=== PATIENT | male | born 1945 | race Caucasian/White ===

== ENCOUNTER 2017-09-07 09:58 | Emergency (ER) | payer MEDICARE ==
[~2017-09-07] VITALS: Ht 185.4 cm; Wt 95.0 kg
[2017-09-07 10:03] VITALS: BP 182/95; PULSE 54; RESP 16; TEMP 98.6; O2SAT 99
[2017-09-07] MEDS ORDERED: LOSA50TA PO (10:14)
[2017-09-07] MEDS ORDERED: METO50TA PO (10:14)
[2017-09-07] MEDS ORDERED: CLON0.1T PO (10:14)
[2017-09-07] MEDS ORDERED: COQ-30CA2 (10:14)
[2017-09-07] MEDS ORDERED: VITA250T3 PO (10:14)
[2017-09-07] MEDS ORDERED: MULT-116 PO (10:14)
[2017-09-07] MEDS ORDERED: ATOR40TA16 PO (10:14)
[2017-09-07] MEDS ORDERED: MULT-65 PO (10:14)
[2017-09-07] MEDS ORDERED: LECI12002 (10:14)
[2017-09-07] MEDS ORDERED: ASPI81CH6 CHEW (10:14)
[2017-09-07] MEDS ORDERED: AMLO5TAB2 PO (10:14)
[2017-09-07] MEDS ORDERED: FOLI400T PO (10:14)
--- NOTE | 2017-09-07 10:25 | PD ---
HPI Chief Complaint: Dizziness Time Seen by Provider: 10:10 Travel History International Travel<30 days: No Contact w/Intl Traveler<30days: No Traveled to known affect area: No History of Present Illness HPI This 72-year-old male says he felt dizzy this morning. When he got up he felt like he might lose his balance. He is quite lightheaded. He did not have real vertigo. He did not have a headache. He feels a bit better now. He went in the shower and it seemed to get worse. He did have some palpitations prior to the onset of the symptoms he is on metoprolol and he says that his heart rate usually is between 50 and 60. He says that he monitors his blood pressure at home and he also gets a pulse rate at the same time. He did not have any chest pain. He has known history of coronary artery disease. He does have an enlarged heart PFSH Past Medical History Cardiovascular Problems: Yes (cardiomegly) High Cholesterol: Yes Diminished Hearing: No Hypertension: Yes Influenza Vaccination: No ?: Not Past Surgical History Eye Surgery: Yes (carolyn cataracts) Joint Replacement: Yes (right hip) Social History Alcohol Use: Yes Tobacco Use: No Allergies-Medications (Allergen,Severity, Reaction): Coded Allergies: No Known Allergies (Verified Allergy, Unknown, 09/07/17) Reported Meds & Prescriptions Reported Meds & Active Scripts Active Reported Sukhjinder Mag Zinc + D3 (Multiple Vitamins W/ Minerals) 1 Tab 1 Tab PO HS Amlodipine (Amlodipine Besylate) 5 Mg Tab 5 Mg PO HS Atorvastatin (Atorvastatin Calcium) 40 Mg Tab 40 Mg PO HS Lecithin (Lecithin, Soy) 1,200 Mg Capsule 0 Vitamin C (Ascorbic Acid) 250 Mg Tab 0 PO DAILY Multi-Vitamin Daily (Multiple Vitamin) 1 Tab Tab 1 Tab PO DAILY Folic Acid 0.4 Mg Tab 0 PO DAILY Coq-10 (Coenzyme Q10 (Ubidecarenone)) 30 Mg Cap 0 Aspirin Low Dose (Aspirin) 81 Mg Chew 81 Mg CHEW DAILY Metoprolol Tartrate 50 Mg Tab 50 Mg PO DAILY Losartan (Losartan Potassium) 50 Mg Tab 50 Mg PO DAILY Clonidine (Clonidine HCl) 0.1 Mg Tab 0.1 Mg PO DAILY Review of Systems General / Constitutional: No: Fever, Chills Eyes: No: Diploplia, Blurred Vision HENT: No: Headaches Cardiovascular: Positive: Palpitations, No: Chest Pain or Discomfort Respiratory: No: Cough, Shortness of Breath Gastrointestinal: No: Vomiting Genitourinary: No: Urgency, Frequency Musculoskeletal: No: Myalgias, Arthralgias Skin: No Rash Neurologic: No: Weakness Endocrine: No: Heat Intolerance Hematologic/Lymphatic: No: Easy Bruising Physical Exam Narrative GENERAL: Well-developed male SKIN: Focused skin assessment warm/dry. HEAD: Atraumatic. Normocephalic. EYES: Pupils equal and round. No scleral icterus. No injection or drainage. ENT: No nasal bleeding or discharge. Mucous membranes pink and moist. NECK: Trachea midline. No JVD. CARDIOVASCULAR: Regular rate and rhythm. No murmur appreciated. RESPIRATORY: No accessory muscle use. Clear to auscultation. Breath sounds equal bilaterally. GASTROINTESTINAL: Abdomen soft, non-tender, nondistended. Hepatic and splenic margins not palpable. MUSCULOSKELETAL: No obvious deformities. No clubbing. No cyanosis. No edema. NEUROLOGICAL: Awake and alert. No obvious cranial nerve deficits. Motor grossly within normal limits. Normal speech. PSYCHIATRIC: Appropriate mood and affect; insight and judgment normal. Data Data Last Documented VS Vital Signs Date Time Temp Pulse Resp B/P (MAP) Pulse Ox O2 Delivery O2 Flow Rate FiO2 09/07/17 11:21 47 18 138/68 (91) 99 Room Air 09/07/17 10:03 98.6 Orders Orders Electrocardiogram (09/07/17 10:23) Complete Blood Count With Diff (09/07/17 10:23) Comprehensive Metabolic Panel (09/07/17 10:23) Troponin I (09/07/17 10:23) Magnesium (Mg) (09/07/17 10:23) Labs Laboratory Tests Test 09/07/17 10:30 White Blood Count 6.6 TH/MM3 Red Blood Count 4.23 MIL/MM3 Hemoglobin 14.8 GM/DL Hematocrit 42.6 % Mean Corpuscular Volume 100.8 FL Mean Corpuscular Hemoglobin 34.9 PG Mean Corpuscular Hemoglobin Concent 34.6 % Red Cell Distribution Width 14.3 % Platelet Count 200 TH/MM3 Mean Platelet Volume 7.3 FL Neutrophils (%) (Auto) 63.3 % Lymphocytes (%) (Auto) 24.2 % Monocytes (%) (Auto) 9.9 % Eosinophils (%) (Auto) 1.4 % Basophils (%) (Auto) 1.2 % Neutrophils # (Auto) 4.1 TH/MM3 Lymphocytes # (Auto) 1.6 TH/MM3 Monocytes # (Auto) 0.7 TH/MM3 Eosinophils # (Auto) 0.1 TH/MM3 Basophils # (Auto) 0.1 TH/MM3 CBC Comment DIFF FINAL Differential Comment Blood Urea Nitrogen 13 MG/DL Creatinine 1.00 MG/DL Random Glucose 107 MG/DL Total Protein 7.7 GM/DL Albumin 3.6 GM/DL Calcium Level 9.0 MG/DL Magnesium Level 1.8 MG/DL Alkaline Phosphatase 93 U/L Aspartate Amino Transf (AST/SGOT) 46 U/L Alanine Aminotransferase (ALT/SGPT) 47 U/L Total Bilirubin 1.8 MG/DL Sodium Level 141 MEQ/L Potassium Level 4.0 MEQ/L Chloride Level 106 MEQ/L Carbon Dioxide Level 28.6 MEQ/L Anion Gap 6 MEQ/L Estimat Glomerular Filtration Rate 73 ML/MIN Troponin I 0.03 NG/ML [facility] Medical Decision Making Medical Screen Exam Complete: Yes Emergency Medical Condition: Yes Medical Record Reviewed: Yes Differential Diagnosis Differential includes vertigo, dysrhythmia, hypotension Narrative Course Neurologic exam is unremarkable and the patient has been fairly asymptomatic here. Of note his heart rate on arrival was 56 and at rest it goes down into the 50s and even the high 40s. He is on metoprolol 50 mg once a day. His blood pressure has been stable. I think he should decrease his metoprolol to 25 mg daily. I have also recommended that he stop his clonidine as he is only taking it once a day Diagnosis Primary Impression: Near syncope Additional Instructions: Decrease metoprolol to 25 mg daily. Stop clonidine Disposition: 01 DISCHARGE HOME Condition: Stable Kwabena Navarro MD Sep 07, 2017 10:25
[2017-09-07 10:33] VITALS: BP 149/76; PULSE 53; RESP 18; O2SAT 99
[2017-09-07 10:36] LABS: AUTOMATED NEUTROPHIL # 4.1 TH/MM3 (1.8-7.7); BASOPHIL # 0.1 TH/MM3 (0-0.2); BASOPHIL % 1.2 % (0.0-2.0); EOSINOPHIL # 0.1 TH/MM3 (0-0.4); EOSINOPHIL % 1.4 % (0.0-4.0); HEMATOCRIT 42.6 % (39.0-51.0); HEMOGLOBIN 14.8 GM/DL (13.0-17.0); LYMPH % 24.2 % (9.0-44.0); LYMPHOCYTE # 1.6 TH/MM3 (1.0-4.8); MEAN CELL VOLUME 100.8 FL (80.0-100.0); MEAN CORPUSCULAR HEMOGLOBIN 34.9 PG (27.0-34.0); MEAN CORPUSCULAR HGB CONC 34.6 % (32.0-36.0); MEAN PLATELET VOLUME 7.3 FL (7.0-11.0); MONO % 9.9 % (0.0-8.0); MONOCYTE # 0.7 TH/MM3 (0-0.9); NEUT % 63.3 % (16.0-70.0); PLATELET COUNT 200 TH/MM3 (150-450); RED BLOOD COUNT 4.23 MIL/MM3 (4.50-5.90); RED CELL DISTRIBUTION WIDTH 14.3 % (11.6-17.2); WHITE BLOOD COUNT 6.6 TH/MM3 (4.0-11.0)
[2017-09-07 10:51] LABS: CHLORIDE 106 MEQ/L (98-107); SODIUM (NA) 141 MEQ/L (136-145)
[2017-09-07 10:55] LABS: ALBUMIN 3.6 GM/DL (3.4-5.0); BICARBONATE 28.6 MEQ/L (21.0-32.0); GLUCOSE,RANDOM 107 MG/DL (74-106)
[2017-09-07 10:56] LABS: BLOOD UREA NITROGEN 13 MG/DL (7-18); MAGNESIUM 1.8 MG/DL (1.5-2.5)
[2017-09-07 10:59] LABS: ALT (GPT) 47 U/L (12-78); AST (GOT) 46 U/L (15-37); GLOMERULAR FILTRATION RATE 73 ML/MIN (>89)
[2017-09-07 11:00] LABS: TOTAL BILIRUBIN ADULT 1.8 MG/DL (0.2-1.0); TOTAL PROTEIN 7.7 GM/DL (6.4-8.2)
[2017-09-07 11:01] LABS: ALKALINE PHOSPHATASE 93 U/L (45-117)
[2017-09-07 11:04] LABS: TROPONIN I 0.03 NG/ML (0.02-0.05)
[2017-09-07 11:21] VITALS: BP 138/68; PULSE 47; RESP 18; O2SAT 99
--- NOTE | 2017-09-07 15:40 | EKG ---
Date Performed: 09/07/2017 Time Performed: 10:32:00 PTAGE: 72 years EKG: SINUS BRADYCARDIA WITH FIRST DEGREE AV BLOCK BORDERLINE LEFT AXIS DEVIATION MODERATE VOLTAG E CRITERIA FOR LVH NONSPECIFIC T-WAVE ABNORMALITY ABNORMAL ECG NO PREVIOUS TRACING DOCTOR: Geoffrey Lima Interpretating Date/Time 09/07/2017 15:38:10
== END 2017-09-07 11:31 | disposition home or self-care (01) ==
LOC: PHED 09:58
DX: R55 Syncope and collapse (principal); R94.31 Abnormal electrocardiogram [ECG] [EKG]; R00.1 Bradycardia, unspecified; I25.10 Atherosclerotic heart disease of native coronary artery without angina pectoris; I10 Essential (primary) hypertension; E78.00 Pure hypercholesterolemia, unspecified
CPT/HCPCS: 80053; 83735; 84484; 85025; 93005; 99284